=== PATIENT | male | born 1960 | race Caucasian/White ===

== ENCOUNTER 2022-01-03 09:15 | Outpatient (CLI) | payer OTHER, SELFPAY ==
[2022-01-04 11:32] LABS: Chloride* 101 mmol/L (96-114)
[2022-01-04 11:33] LABS: Potassium* 4.2 mmol/L (3.6-5.1); Sodium* 137 mmol/L (135-149)
[2022-01-04 11:35] LABS: Cholesterol* 153 mg/dL (90-199); Creatinine* 0.9 mg/dL (0.5-1.5); Estimated Glomerular Filt Rate 97 ml/min
[2022-01-04 11:36] LABS: Alanine Aminotransferase* 27 U/L (4-50); Blood Urea Nitrogen* 15 mg/dL (7-30); Calcium* 8.9 mg/dL (8.4-10.6); Carbon Dioxide* 30 mmol/L (20-32); Glucose* 122 mg/dL (60-115); HDL Cholesterol* 33 mg/dL (>=40); LDL Cholesterol Calculated 97 mg/dL (<100); Triglycerides* 114 mg/dL (40-149)
[2022-01-04 12:17] LABS: PSA Screen* 0.12 ng/mL (0.10-4.00)
== END 2022-01-03 09:16 | disposition home or self-care (01) ==
PROVIDERS: PCP Family Medicine; Visit Provider Family Medicine
DX: E78.5 Hyperlipidemia, unspecified (principal); I10 Essential (primary) hypertension; Z12.5 Encounter for screening for malignant neoplasm of prostate; E11.9 Type 2 diabetes mellitus without complications
CPT/HCPCS: 80048; 80061; 84153; 84460

== ENCOUNTER 2023-01-23 12:02 | Outpatient (CLI) | payer OTHER, SELFPAY ==
[2023-01-23 13:55] LABS: Chloride* 100 mmol/L (96-114); Potassium* 4.2 mmol/L (3.6-5.1); Sodium* 138 mmol/L (135-149)
[2023-01-23 13:57] LABS: Alanine Aminotransferase* 37 U/L (4-50); Anion Gap 9 mEq/L (7-15); Carbon Dioxide* 29 mmol/L (20-32); Cholesterol* 186 mg/dL (90-199); Creatinine* 0.9 mg/dL (0.5-1.5); Estimated Glomerular Filt Rate 96 ml/min
[2023-01-23 13:58] LABS: Blood Urea Nitrogen* 16 mg/dL (7-30); Calcium* 9.4 mg/dL (8.4-10.6); Glucose* 117 mg/dL (60-115); HDL Cholesterol* 39 mg/dL (>=40); LDL Cholesterol Calculated 119 mg/dL (<100); Triglycerides* 142 mg/dL (40-149)
== END 2023-01-23 12:03 | disposition home or self-care (01) ==
PROVIDERS: PCP Family Medicine; Visit Provider Family Medicine
DX: I10 Essential (primary) hypertension (principal); E11.9 Type 2 diabetes mellitus without complications; E78.5 Hyperlipidemia, unspecified; I73.00 Raynaud's syndrome without gangrene
CPT/HCPCS: 80048; 80061; 84460

== ENCOUNTER 2024-04-27 10:10 | Outpatient (CLI) | payer OTHER, SELFPAY | END 2024-04-27 10:11 | disposition home or self-care (01) | PROVIDERS: PCP Family Medicine; Visit Provider Family Medicine | DX: E11.9 Type 2 diabetes mellitus without complications (principal); I10 Essential (primary) hypertension; E78.2 Mixed hyperlipidemia; Z12.5 Encounter for screening for malignant neoplasm of prostate | CPT/HCPCS: 80048; 80061; 84460; G0103 ==

== ENCOUNTER 2024-10-26 09:24 | Outpatient (CLI) | payer MEDICARE, BC, SELFPAY | END 2024-10-26 09:25 | disposition home or self-care (01) | LOC: FBOREF 09:24 | PROVIDERS: PCP Family Medicine; Visit Provider Family Medicine | DX: E78.2 Mixed hyperlipidemia (principal); E11.9 Type 2 diabetes mellitus without complications | CPT/HCPCS: 80061 ==